=== PATIENT | male | born 1945 | race Caucasian/White ===

== ENCOUNTER → 2021-08-01 16:23 | Outpatient (BNVA) | payer MEDICARE, SELFPAY | PROVIDERS: Family Provider Family Medicine; PCP Family Medicine; Visit Provider Nurse Practitioner Family | DX: M25.50 Pain in unspecified joint (principal); R30.0 Dysuria; M79.602 Pain in left arm; N39.0 Urinary tract infection, site not specified | CPT/HCPCS: 81000; 86160; 86162; 86235; 86255; 86376; 87077; 87086; 87184 ==

== ENCOUNTER → 2021-08-09 07:37 | Outpatient (BNVA) | payer MEDICARE, BC, SELFPAY | PROVIDERS: Family Provider Family Medicine; PCP Family Medicine; Visit Provider Nurse Practitioner Family | DX: N39.0 Urinary tract infection, site not specified (principal) | CPT/HCPCS: 81003 ==

== ENCOUNTER → 2021-08-30 10:14 | Outpatient (BNVA) | payer MEDICARE, BC, SELFPAY | PROVIDERS: Family Provider Family Medicine; PCP Family Medicine; Visit Provider Internal Medicine | DX: Z00.00 Encounter for general adult medical examination without abnormal findings (principal); N39.0 Urinary tract infection, site not specified; N40.1 Benign prostatic hyperplasia with lower urinary tract symptoms | CPT/HCPCS: 80053; 84154; 84443; 85025 ==

== ENCOUNTER → 2021-09-19 11:58 | Outpatient (BNVA) | payer MEDICARE, BC, SELFPAY | PROVIDERS: Family Provider Family Medicine; PCP Family Medicine; Visit Provider Urology | DX: M19.90 Unspecified osteoarthritis, unspecified site (principal); M45.0 Ankylosing spondylitis of multiple sites in spine; M25.50 Pain in unspecified joint; L40.9 Psoriasis, unspecified; N40.1 Benign prostatic hyperplasia with lower urinary tract symptoms; R33.9 Retention of urine, unspecified; N31.9 Neuromuscular dysfunction of bladder, unspecified; N39.0 Urinary tract infection, site not specified | CPT/HCPCS: 36415; 72202; 73100; 73120; 73620; 81000; 81003; 82310; 82550; 83516; 83540; 83735; 83970; 84100; 84550; 85651; 86140; 86200; 86431; 86704; 86803; 86812; 87340 ==

== ENCOUNTER → 2021-10-30 10:09 | Outpatient (BNVA) | payer MEDICARE, SELFPAY | PROVIDERS: Family Provider Family Medicine; PCP Internal Medicine; Visit Provider Internal Medicine | DX: M19.90 Unspecified osteoarthritis, unspecified site (principal); R76.8 Other specified abnormal immunological findings in serum; M10.9 Gout, unspecified; M54.50 Low back pain, unspecified | CPT/HCPCS: 99214 ==

== ENCOUNTER → 2022-01-18 10:32 | Outpatient (BNVA) | payer MEDICARE, SELFPAY | PROVIDERS: Family Provider Family Medicine; PCP Family Medicine; Visit Provider Internal Medicine | DX: M19.90 Unspecified osteoarthritis, unspecified site (principal); R76.8 Other specified abnormal immunological findings in serum; M10.9 Gout, unspecified; M54.50 Low back pain, unspecified | CPT/HCPCS: 99214 ==

== ENCOUNTER → 2022-03-29 10:41 | Outpatient (BNVA) | payer MEDICARE, SELFPAY | PROVIDERS: Family Provider Family Medicine; PCP Family Medicine; Visit Provider Urology | DX: R33.9 Retention of urine, unspecified (principal); Z87.440 Personal history of urinary (tract) infections; N31.9 Neuromuscular dysfunction of bladder, unspecified; N52.9 Male erectile dysfunction, unspecified | CPT/HCPCS: 81003; 99213 ==

== ENCOUNTER → 2022-05-09 13:14 | Outpatient (BNVA) | payer MEDICARE, SELFPAY | PROVIDERS: Family Provider Family Medicine; PCP Family Medicine; Visit Provider Internal Medicine | DX: R76.8 Other specified abnormal immunological findings in serum (principal); M10.9 Gout, unspecified; M19.90 Unspecified osteoarthritis, unspecified site; M54.50 Low back pain, unspecified | CPT/HCPCS: 36415; 73522; 80053; 81001; 84550; 85025; 85651; 86140; 99214 ==

== ENCOUNTER → 2022-07-24 09:32 | Outpatient (BNVA) | payer MEDICARE, SELFPAY | PROVIDERS: Family Provider Family Medicine; PCP Family Medicine; Visit Provider Internal Medicine | DX: M25.50 Pain in unspecified joint (principal); R76.8 Other specified abnormal immunological findings in serum; M10.9 Gout, unspecified; Z79.899 Other long term (current) drug therapy; M54.50 Low back pain, unspecified; M19.90 Unspecified osteoarthritis, unspecified site | CPT/HCPCS: 36415; 80053; 84550; 85025; 85651; 86140; 99213 ==

== ENCOUNTER → 2022-11-13 09:23 | Outpatient (BNVA) | payer MEDICARE, SELFPAY | PROVIDERS: Family Provider Family Medicine; PCP Family Medicine; Visit Provider Nurse Practitioner Family | DX: R30.0 Dysuria (principal) | CPT/HCPCS: 81000 ==

== ENCOUNTER → 2023-01-24 09:44 | Outpatient (BNVA) | payer MEDICARE, SELFPAY | PROVIDERS: Family Provider Family Medicine; PCP Registered Nurse; Visit Provider Registered Nurse | DX: J32.9 Chronic sinusitis, unspecified (principal); N31.9 Neuromuscular dysfunction of bladder, unspecified | CPT/HCPCS: 80053; 85025 ==

== ENCOUNTER → 2023-04-02 09:53 | Outpatient (BNVA) | payer MEDICARE, SELFPAY | PROVIDERS: Family Provider Family Medicine; PCP Registered Nurse; Visit Provider Nurse Practitioner Family | DX: D84.1 Defects in the complement system (principal) | CPT/HCPCS: 86160; 86162 ==

== ENCOUNTER → 2023-12-06 10:47 | Outpatient (BNVA) | payer MEDICARE, SELFPAY | PROVIDERS: Family Provider Family Medicine; PCP Registered Nurse; Visit Provider Nurse Practitioner Family | DX: I10 Essential (primary) hypertension (principal); R06.00 Dyspnea, unspecified; R53.83 Other fatigue; R05.3 Chronic cough | CPT/HCPCS: 80053; 80061; 83880; 84443; 85025 ==

== ENCOUNTER → 2024-01-08 08:20 | Outpatient (BNVA) | payer MEDICARE, SELFPAY | PROVIDERS: Family Provider Family Medicine; PCP Registered Nurse; Visit Provider Nurse Practitioner Family | DX: E87.1 Hypo-osmolality and hyponatremia (principal); E78.5 Hyperlipidemia, unspecified | CPT/HCPCS: 80053; 80061 ==

== ENCOUNTER → 2024-02-26 08:03 | Outpatient (BNVA) | payer MEDICARE, SELFPAY | PROVIDERS: Family Provider Family Medicine; PCP Registered Nurse; Visit Provider Nurse Practitioner Family | DX: I10 Essential (primary) hypertension (principal); M1A.9XX0 Chronic gout, unspecified, without tophus (tophi); R53.83 Other fatigue | CPT/HCPCS: 80053; 80061; 84550; 85025 ==

== ENCOUNTER → 2024-03-24 13:32 | Outpatient (BNVA) | payer MEDICARE, SELFPAY | PROVIDERS: Family Provider Nurse Practitioner Family; PCP Nurse Practitioner Family; Visit Provider Nurse Practitioner Family | DX: N39.0 Urinary tract infection, site not specified (principal); G30.9 Alzheimer's disease, unspecified; F02.80 Dementia in other diseases classified elsewhere, unspecified severity, without behavioral disturbance, psychotic disturbance, mood disturbance, and anxiety | CPT/HCPCS: 81000; 87086 ==

== ENCOUNTER → 2024-04-03 09:13 | Outpatient (BNVA) | payer MEDICARE, SELFPAY | PROVIDERS: Family Provider Nurse Practitioner Family; PCP Nurse Practitioner Family; Visit Provider Nurse Practitioner Family | DX: N39.0 Urinary tract infection, site not specified (principal) | CPT/HCPCS: 87086 ==

== ENCOUNTER 2024-04-06 13:29 | Outpatient (CLI) | payer MEDICARE, SELFPAY ==
--- NOTE | 2024-04-06 13:30 | US_ITS ---
WS: [id number] ULTRASOUND RENAL TECHNIQUE: Ultrasound examination of both kidneys. CLINICAL INFORMATION: R10.9 - Unspecified abdominal pain COMPARISON: None. FINDINGS: Multiple bilateral simple renal cysts. RIGHT: Largest cyst on the RIGHT measures 1.9 x 1.7 x 1.7 cm Right kidney is normal in size and appearance. Echogenicity: Normal. Cortical thickness: 1.4 cm; Normal. Hydronephrosis: None. Perinephric fluid: None. Right kidney measures: 13.0 cm x 6.3 cm x 5.7 cm. LEFT: Largest cyst in the LEFT measures 5.7 x 5.5 x 5.7 cm. Left kidney is normal in size and appearance. Echogenicity: Normal. Cortical thickness: 5.5 cm; Normal. Hydronephrosis: None. Perinephric fluid: None. Left kidney measures: 13.6 cm x 5.9 cm x 5.9 cm. Normal visualized aorta. Normal bladder. US/US renal BI* [id number] IMPRESSION: 1. Multiple bilateral simple renal cysts. 2. Largest cyst LEFT kidney measures 5.7 x 5.5 x 5.7 cm 3. No hydronephrosis in either kidney.
== END 2024-04-06 13:30 | disposition home or self-care (01) ==
LOC: RAD 13:29
PROVIDERS: Family Provider Nurse Practitioner Family; PCP Nurse Practitioner Family; Visit Provider Nurse Practitioner Family
DX: R10.9 Unspecified abdominal pain (principal); N28.1 Cyst of kidney, acquired
CPT/HCPCS: 76770; 81000; 87086

== ENCOUNTER → 2024-04-20 09:01 | Outpatient (BNVA) | payer MEDICARE, SELFPAY | PROVIDERS: Family Provider Nurse Practitioner Family; PCP Nurse Practitioner Family; Visit Provider Nurse Practitioner Family | DX: N39.0 Urinary tract infection, site not specified (principal) | CPT/HCPCS: 81000 ==